=== PATIENT | male | born 1970 | race Hispanic/Latino ===

== ENCOUNTER 2016-10-04 13:59 | Emergency (ER) | payer SELFPAY ==
[2016-10-04 14:24] VITALS: BP 119/66
[2016-10-04 14:46] LABS: Basophils % (Auto) 0.6 % (0.0-1.8); Eosinophils % (Auto) 2.9 % (0.0-4.3); Hematocrit 49.2 % (35.5-45.6); Hemoglobin 16.6 gm/dl (11.8-15.2); Mean Corpuscular HGB Conc 34 % (32-34); Mean Corpuscular Hemoglobin 31 pg (28-32); Mean Corpuscular Volume 92 fl (84-94); Platelet Count 220 K/mm3 (140-440); Red Blood Count 5.32 M/mm3 (3.65-5.03); White Blood Count 10.6 K/mm3 (4.5-11.0)
[2016-10-04 14:59] LABS: Anion Gap 17 mmol/L; BUN/Creatinine Ratio 15.45; Blood Urea Nitrogen 17 mg/dL (9-20); Calcium 9.1 mg/dL (8.4-10.2); Carbon Dioxide 23 mmol/L (22-30); Chloride 101.6 mmol/L (98-107); Glucose 78 mg/dL (75-100); Potassium 4.3 mmol/L (3.6-5.0); Sodium 137 mmol/L (137-145)
--- NOTE | 2016-10-04 15:19 | XRay Report ---
CHEST 2 VIEWS INDICATION: Shortness of breath. COMPARISON: None similar at this institution. FINDINGS: PA and lateral chest radiographs demonstrate normal cardiomediastinal silhouette. Clear lungs. Slight thoracic spine degenerative changes. CONCLUSION: No acute disease in the chest. Thank you for the opportunity to participate in this patient's care.
--- NOTE | 2016-10-07 11:34 | ED Elopement Review ---
ED Pt Elopement review - Results review Lab results: Laboratory Tests 10/04/16 10/04/16 14:27 14:27 WBC 10.6 RBC 5.32 H Hgb 16.6 H Hct 49.2 H MCV 92 MCH 31 MCHC 34 RDW 13.0 L Plt Count 220 Lymph % (Auto) 23.2 [place] % (Auto) 6.6 Eos % (Auto) 2.9 Baso % (Auto) 0.6 Lymph # 2.5 [place] # 0.7 Eos # 0.3 Baso # 0.1 Seg Neutrophils % 66.7 Seg Neutrophils # 7.1 Sodium 137 Potassium 4.3 Chloride 101.6 Carbon Dioxide 23 Anion Gap 17 BUN 17 Creatinine 1.1 Estimated GFR > 60 BUN/Creatinine Ratio 15.45 Glucose 78 Calcium 9.1 Troponin T < 0.010 - Call Back decision Pt Call Back Decision: No action required
== END 2016-10-04 18:10 | disposition left against medical advice (07) ==
LOC: ED 13:59
DX: R06.00 Dyspnea, unspecified (principal); Z53.21 Procedure and treatment not carried out due to patient leaving prior to being seen by health care provider
CPT/HCPCS: 36415; 71020; 80048; 84484; 85025; 93005; 93010